=== PATIENT | female | born 1985 ===

== ENCOUNTER 2017-12-17 16:04 | Emergency (ER) | payer SELFPAY ==
[2017-12-17 16:20] VITALS: BP 109/69; PULSE 81; RESP 19; TEMP 98.6; O2SAT 98
[2017-12-17 17:04] LABS: SQUAMOUS EPITHIAL < 1 /hpf (0-5); URINE BILIRUBIN NEGATIVE (NEGATIVE); URINE BLOOD NEGATIVE (NEGATIVE); URINE CLARITY SLIGHTY-CLOUDY (Clear); URINE COLOR YELLOW (YELLOW); URINE GLUCOSE (UA) NEG (Normal); URINE LEUKOCYTE ESTERASE NEG Leu/uL (Negative); URINE PROTEIN NEGATIVE (NEGATIVE); URINE UROBILINOGEN 0.2-1.0 mg/dL (0.2-1.0)
--- NOTE | 2017-12-17 17:09 | ED PDOC ---
HPI: General Adult Time Seen by Provider: 12/17/17 16:26 Chief Complaint (Nursing): Back Pain Chief Complaint (Provider): Abdominal Pain History Per: Patient History/Exam Limitations: no limitations Onset/Duration Of Symptoms: Days Current Symptoms Are (Timing): Still Present Additional Complaint(s): 32 year old female presents to the ED for a cramping lower quadrant abdominal pain onset for 3 days. She states the left side is greater than the right side. She has mild vaginal discharge. Denies any urinary symptoms. PMD: Non CPH Provider Past Medical History Reviewed: Historical Data, Nursing Documentation, Vital Signs Vital Signs: Last Vital Signs Temp 98.6 F 12/17/17 16:18 Pulse 81 12/17/17 16:18 Resp 19 12/17/17 16:18 BP 109/69 12/17/17 16:18 Pulse Ox 98 12/17/17 18:54 - Medical History PMH: No Chronic Diseases - Family History Family History: States: Unknown Family Hx - Allergies Allergies/Adverse Reactions: Allergies Allergy/AdvReac Type Severity Reaction Status Date / Time No Known Allergies Allergy Verified 12/17/17 16:18 Review of Systems ROS Statement: Except As Marked, All Systems Reviewed And Found Negative Gastrointestinal: Positive for: Abdominal Pain (LLQ) Genitourinary Female: Positive for: Vaginal Discharge (mild). Negative for: Dysuria, Frequency, Incontinence, Vaginal Bleeding Physical Exam - Reviewed Nursing Documentation Reviewed: Yes Vital Signs Reviewed: Yes - Physical Exam Appears: Positive for: Non-toxic, No Acute Distress Head Exam: Positive for: ATRAUMATIC, NORMAL INSPECTION, NORMOCEPHALIC Skin: Positive for: Normal Color, Warm, Dry Eye Exam: Positive for: Normal appearance Gastrointestinal/Abdominal: Positive for: Soft, Tenderness (lower abdomen) Pelvic Exam: Positive for: No Cerv. Motion Tender, Discharge (white), Tender Adnexa (left) Back: Positive for: L CVA Tenderness, R CVA Tenderness Neurologic/Psych: Positive for: Alert, Oriented (x3). Negative for: Motor/ Sensory Deficits - Laboratory Results Result Diagrams: 12/17/17 17:35 12/17/17 17:35 - ECG O2 Sat by Pulse Oximetry: 98 (RA) Pulse Ox Interpretation: Normal - Progress ED Course And Treament: PATIENT LEFT PRIOR TO US READING. Medical Decision Making Medical Decision Making: Time: 1631 Initial Impression: left lower quadrant pain Initial Plan: --ED Urine --ED Urine Dipstick --Urine Culture --Urinalysis --Reevaluation Scribe Attestation: Documented by Victor Hugo Alfaro, acting as a scribe for Js Bonds PA-C. Provider Scribe Attestation: All medical record entries made by the Scribe were at my direction and personally dictated by me. I have reviewed the chart and agree that the record accurately reflects my personal performance of the history, physical exam, medical decision making, and the department course for this patient. I have also personally directed, reviewed, and agree with the discharge instructions and disposition. Disposition - Clinical Impression Clinical Impression: Abdominal pain - Patient ED Disposition Is Patient to be Admitted: No - Disposition [facility] Disposition: Left W/O Treatment Disposition Time: 20:40 Condition: STABLE Instructions: Acute Pelvic Pain (DC)
[2017-12-17 17:49] LABS: BASO % 0.4 % (0.0-2.0); EOS # 0.1 K/uL (0.0-0.7); EOS % 1.2 % (0.0-4.0); HEMOGLOBIN 11.5 g/dL (12.0-16.0); LYMPH # 1.2 K/uL (1.0-4.3); LYMPH % 19.8 % (20.0-40.0); MEAN CELL VOLUME 85.2 fl (81.0-99.0); MEAN CORPUSCULAR HEMOGLOBIN 28.4 pg (27.0-31.0); MEAN CORPUSCULAR HGB CONC 33.4 g/dL (33.0-37.0); MEAN PLATELET VOLUME 7.6 fl (7.2-11.7); MONO # 0.3 K/uL (0.0-0.8); MONO % 5.6 % (0.0-10.0); NEUT # 4.4 K/uL (1.8-7.0); RBC 4.03 Mil/uL (3.80-5.20); RED CELL DISTRIBUTION WIDTH 14.7 % (11.5-14.5)
[2017-12-17 18:03] LABS: ALB/GLOB RATIO 1.4 (1.0-2.1); ALBUMIN 4.4 g/dL (3.5-5.0); ALT/SGPT 31 U/L (9-52); AST/SGOT 27 U/L (14-36); BLOOD UREA NITROGEN 13 mg/dl (7-17); GFR NON-AFRICAN AMERICAN > 60; LIPASE 81 U/L (23-300)
--- NOTE | 2017-12-18 08:17 | US ---
Date of service: 12/17/2017 PROCEDURE: HISTORY: left adnexal tendernses COMPARISON: TECHNIQUE: FINDINGS: The uterus measures 6.4 x 2.3 x 5.2 centimeters. The endometrium measures 12 millimeters. There is a cystic structure along the endometrial cavity measuring roughly 4 millimeters which is nonspecific. The left ovary is normal. The right ovary contains a 1.5 centimeter by 1.8 centimeter possible debris filled cyst. IMPRESSION: 3 millimeter cystic structure along the endometrial cavity. This could represent a gestational sac. Recommend short-term interval follow-up and correlation with beta HCG levels.
== END 2017-12-17 21:02 | disposition left against medical advice (07) ==
LOC: H.ER 16:04
DX: R10.2 Pelvic and perineal pain (principal); N89.8 Other specified noninflammatory disorders of vagina